=== PATIENT | female | born 1975 | race Caucasian/White ===

== ENCOUNTER 2017-02-05 16:19 | Emergency (ER) | payer MEDICAID ==
[2017-02-05 16:29] VITALS: RESP 16; TEMP 97.9
[2017-02-05] MEDS ORDERED: NS 1,000 ML IV ONE (16:49)
--- NOTE | 2017-02-05 16:51 | EDPHY ---
H & P Stated Complaint: LOWER ABD PAIN W/ NAUSEA Time Seen by Provider: 02/05/17 16:40 HPI/ROS: CHIEF COMPLAINT: Bilateral lower quadrant pain HISTORY OF PRESENT ILLNESS: Patient is a 41-year-old female with a history of appendectomy and cholecystectomy who comes to the emergency department complaining of bilateral lower abdominal pain and nausea. She has not vomited. No diarrhea. No fever. No vaginal bleeding or discharge. Her menses was 2 weeks ago. She denies risk of . She states the symptoms are similar to previous episodes of ovarian cysts. She states that she felt normal yesterday. No urinary symptoms. REVIEW OF SYSTEMS: Constitutional: denies: chills, fever, recent illness, recent injury EENTM: denies: blurred vision, double vision, nose congestion Respiratory: denies: cough, shortness of breath Cardiac: denies: chest pain, irregular heart rate, lightheadedness, palpitations Gastrointestinal/Abdominal: See HPI Genitourinary: denies: dysuria, frequency, hematuria, pain Musculoskeletal: denies: joint pain, muscle pain Skin: denies: lesions, rash, jaundice, bruising Neurological: denies: headache, numbness, paresthesia, tingling, dizziness, weakness Hematologic/Lymphatic: denies: blood clots, easy bleeding, easy bruising Immunologic/allergic: denies: HIV/AIDS, transplant EXAM: GENERAL: Well-appearing, well-nourished and in no acute distress. HEAD: Atraumatic, normocephalic. EYES: Pupils equal round and reactive to light, extraocular movements intact, sclera anicteric, conjunctiva are normal. ENT: TMs normal, nares patent, oropharynx clear without exudates. Moist mucous membranes. NECK: Normal range of motion, supple without lymphadenopathy or JVD. LUNGS: Breath sounds clear to auscultation bilaterally and equal. No wheezes rales or rhonchi. HEART: Regular rate and rhythm without murmurs, rubs or gallops. ABDOMEN: Soft, nontender, normoactive bowel sounds. No guarding, no rebound. No masses appreciated. BACK: No CVA tenderness, no spinal tenderness, step-offs or deformities EXTREMITIES: Normal range of motion, no pitting or edema. No clubbing or cyanosis. NEUROLOGICAL: Cranial nerves II through XII grossly intact. Normal speech, normal gait. 5/5 strength, normal movement in all extremities, normal sensation PSYCH: Normal mood, normal affect. SKIN: Warm, dry, normal turgor, no visible rashes or lesions. Source: Patient Exam Limitations: No limitations - Personal History LMP (Females 10-55): 8-14 Days Ago Current Tetanus Diphtheria and Acellular Pertussis (TDAP): Yes - Medical/Surgical History Hx Asthma: No Hx Chronic Respiratory Disease: No Hx Diabetes: No Hx Cardiac Disease: No Hx Renal Disease: No Hx Cirrhosis: No Hx Alcoholism: No Other PMH: KUMAR, APPY - Family History Significant Family History: No pertinent family hx - Social History Smoking Status: Never smoked Alcohol Use: Sober Drug Use: None Constitutional: Initial Vital Signs Temperature (C) 36.6 C 02/05/17 16:27 Heart Rate 84 02/05/17 16:27 Respiratory Rate 16 02/05/17 16:27 Blood Pressure 116/78 02/05/17 16:27 O2 Sat (%) 95 02/05/17 16:27 O2 Delivery Mode Room Air Allergies/Adverse Reactions: No Known Allergies Allergy (Unverified 02/05/17 16:26) Home Medications: Medication Instructions Recorded Cephalexin [Keflex] 500 mg PO TID #21 cap 02/05/17 Medical Decision Making - Diagnostics Imaging Results: Imaging Impressions Pelvic/Renal Ultrasound 02/05/17 16:49 Impression: 1. No acute findings in the pelvis. 2. Adnexal varices, which can be seen in asymptomatic patients as well as patients with pelvic congestion syndrome. Findings discussed with TONIO SMITH 02/05/2017 at 17:46. Imaging: Discussed imaging studies w/ sld inclusion teacher Radiologist ED Course/Re-evaluation: 6:45 p.m. we discussed the urinalysis results. I will start her on Keflex. She declines IV medication. We discussed continued treatment and indications for returning. We discussed expected course. Differential Diagnosis: Partial list of the Differential diagnosis considered include but were not limited to; urinary tract infection, ovarian cyst and although unlikely based on the history and physical exam, I also considered obstruction, ischemia, volvulus, diarrhea, constipation. I discussed these differential diagnoses and the plan with the patient as well as the usual and expected course. The patient understands that the diagnosis is provisional and that in medicine we are not always correct and that further workup is often warranted. Usual and customary warnings were given. All of the patient's questions were answered. The patient was instructed to return to the emergency department should the symptoms at all worsen or return, otherwise to followup with the physician as we discussed. - Data Points Laboratory Results: Laboratory Results 02/05/17 16:45 02/05/17 16:45 02/05/17 02/05/17 02/05/17 18:25 16:45 16:45 WBC RBC Hgb Hct MCV MCH MCHC RDW Plt Count MPV Neut % (Auto) Lymph % (Auto) [place] % (Auto) Eos % (Auto) Baso % (Auto) Nucleat RBC Rel Count Absolute Neuts (auto) Absolute Lymphs (auto) Absolute Monos (auto) Absolute Eos (auto) Absolute Basos (auto) Absolute Nucleated RBC Immature Gran % Immature Gran # Sodium 144 mEq/L mEq/L (134-144) Potassium 4.2 mEq/L mEq/L (3.5-5.2) Chloride 108 mEq/L mEq/L (97-110) Carbon Dioxide 24 mEq/l mEq/l (22-31) Anion Gap 12 mEq/L mEq/L (8-16) BUN 12 mg/dL mg/dL (7-23) Creatinine 0.7 mg/dL mg/dL (0.6-1.0) Estimated GFR > 60 Glucose 123 mg/dL H mg/dL (70-100) Calcium 9.9 mg/dL mg/dL (8.5-10.4) Total Bilirubin 0.3 mg/dL mg/dL (0.1-1.4) Conjugated Bilirubin 0.2 mg/dL mg/dL (0.0-0.5) Unconjugated Bilirubin 0.1 mg/dL mg/dL (0.0-1.1) AST 23 IU/L IU/L (14-46) ALT 43 IU/L IU/L (9-52) Alkaline Phosphatase 69 IU/L IU/L (38-126) Total Protein 7.2 g/dL g/dL (6.3-8.2) Albumin 4.1 g/dL g/dL (3.5-5.0) Lipase 80 IU/L IU/L (23-300) Beta HCG, Qual NEGATIVE Urine Color YELLOW Urine Appearance HAZY Urine pH 6.0 (5.0-7.5) Ur Specific [place] 1.021 (1.002-1.030) Urine Protein NEGATIVE (NEGATIVE) Urine Ketones NEGATIVE (NEGATIVE) Urine Blood NEGATIVE (NEGATIVE) Urine Nitrate POSITIVE H (NEGATIVE) Urine Bilirubin NEGATIVE (NEGATIVE) Urine Urobilinogen NEGATIVE EU EU (0.2-1.0) Ur Leukocyte Esterase TRACE H (NEGATIVE) Urine RBC 1-3 /hpf /hpf (0-3) Urine WBC 25-50 /hpf H /hpf (0-3) Ur Epithelial Cells 2+ /lpf H /lpf (NONE-1+) Calcium Oxalate Crystal PRESENT /hpf /hpf (NONE-1+) Urine Bacteria 3+ /hpf H /hpf (NONE SEEN) Urine Mucus TRACE /lpf /lpf (NONE-1+) Urine Glucose NEGATIVE (NEGATIVE) 02/05/17 16:45 WBC 6.55 10^3/uL 10^3/uL (3.80-9.50) RBC 4.30 10^6/uL 10^6/uL (4.18-5.33) Hgb 14.1 g/dL g/dL (12.6-16.3) Hct 41.2 % % (38.0-47.0) MCV 95.8 fL fL (81.5-99.8) MCH 32.8 pg pg (27.9-34.1) MCHC 34.2 g/dL g/dL (32.4-36.7) RDW 12.4 % % (11.5-15.2) Plt Count 262 10^3/uL 10^3/uL (150-400) MPV 10.3 fL fL (8.7-11.7) Neut % (Auto) 57.3 % % (39.3-74.2) Lymph % (Auto) 29.8 % % (15.0-45.0) Hendry % (Auto) 8.7 % % (4.5-13.0) Eos % (Auto) 2.9 % % (0.6-7.6) Baso % (Auto) 0.8 % % (0.3-1.7) Nucleat RBC Rel Count 0.0 % % (0.0-0.2) Absolute Neuts (auto) 3.76 10^3/uL 10^3/uL (1.70-6.50) Absolute Lymphs (auto) 1.95 10^3/uL 10^3/uL (1.00-3.00) Absolute Monos (auto) 0.57 10^3/uL 10^3/uL (0.30-0.80) Absolute Eos (auto) 0.19 10^3/uL 10^3/uL (0.03-0.40) Absolute Basos (auto) 0.05 10^3/uL 10^3/uL (0.02-0.10) Absolute Nucleated RBC 0.00 10^3/uL 10^3/uL (0-0.01) Immature Gran % 0.5 % % (0.0-1.1) Immature Gran # 0.03 10^3/uL 10^3/uL (0.00-0.10) Sodium Potassium Chloride Carbon Dioxide Anion Gap BUN Creatinine Estimated GFR Glucose Calcium Total Bilirubin Conjugated Bilirubin Unconjugated Bilirubin AST ALT Alkaline Phosphatase Total Protein Albumin Lipase Beta HCG, Qual Urine Color Urine Appearance Urine pH Ur Specific [place] Urine Protein Urine Ketones Urine Blood Urine Nitrate Urine Bilirubin Urine Urobilinogen Ur Leukocyte Esterase Urine RBC Urine WBC Ur Epithelial Cells Calcium Oxalate Crystal Urine Bacteria Urine Mucus Urine Glucose Medications Given: Discontinued Medications Cephalexin HCl (Keflex) 500 mg PO EDNOW ONE PRN Reason: Protocol Stop: 02/05/17 18:46 Last Admin: 02/05/17 19:04 Dose: 500 mg Sodium Chloride (Ns) 1,000 mls @ 0 mls/hr IV EDNOW ONE; Wide Open PRN Reason: Protocol Stop: 02/05/17 16:50 Last Admin: 02/05/17 16:59 Dose: 1,000 mls Departure - Departure Disposition: Home, Routine, Self-Care Clinical Impression: Urinary tract infection Qualifiers: Urinary tract infection type: acute cystitis Hematuria presence: without hematuria Qualified Code(s): N30.00 - Acute cystitis without hematuria Condition: Fair Instructions: Urinary Tract Infection in Women (ED) Referrals: NONE *PRIMARY CARE P,. [Primary Care Provider] - As per Instructions Angella Rodrigez MD [Medical Doctor] - As per Instructions Prescriptions: Cephalexin [Keflex] 500 mg PO TID #21 cap
[2017-02-05 16:56] LABS: % IMMATURE GRANULYOCYTES 0.5 % (0.0-1.1); ABSOLUTE IMMATURE GRANULOCYTES 0.03 10^3/uL (0.00-0.10); ADD DIFF? NO; ADD MORPH? NO; ADD SCAN? NO; ATYPICAL LYMPHOCYTE FLAG 10 (0-99); FRAGMENT RBC FLAG 0 (0-99); HEMATOCRIT 41.2 % (38.0-47.0); HEMOGLOBIN 14.1 g/dL (12.6-16.3); LEFT SHIFT FLG 0 (0-99); LIPEMIA HEMOLYSIS FLAG 90 (0-99); MEAN CELL HEMOGLOBIN 32.8 pg (27.9-34.1); MEAN CELL HEMOGLOBIN CONCENTR. 34.2 g/dL (32.4-36.7); MEAN CELL VOLUME 95.8 fL (81.5-99.8); MEAN PLATELET VOLUME 10.3 fL (8.7-11.7); PLATELET CLUMPS FLAG 10 (0-99); PLATELET COUNT 262 10^3/uL (150-400); RED CELL DISTRIBUTION WIDTH 12.4 % (11.5-15.2)
[2017-02-05 17:09] LABS: ALANINE AMINOTRANSFERASE 43 IU/L (9-52); ALBUMIN 4.1 g/dL (3.5-5.0); ALKALINE PHOSPHATASE 69 IU/L (38-126); ANION GAP 12 mEq/L (8-16); ASPARTATE AMINOTRANSFERASE 23 IU/L (14-46); BILIRUBIN,TOTAL 0.3 mg/dL (0.1-1.4); BILIRUBIN-CONJUGATED 0.2 mg/dL (0.0-0.5); BILIRUBIN-UNCONJUGATED 0.1 mg/dL (0.0-1.1); CALCIUM 9.9 mg/dL (8.5-10.4); CARBON DIOXIDE 24 mEq/l (22-31); CHLORIDE 108 mEq/L (97-110); CREATININE 0.7 mg/dL (0.6-1.0); GLOMERULAR FILTRATION RATE > 60; GLUCOSE 123 mg/dL (70-100); POTASSIUM 4.2 mEq/L (3.5-5.2); SODIUM 144 mEq/L (134-144); TOTAL PROTEIN 7.2 g/dL (6.3-8.2)
[2017-02-05 18:38] LABS: COLOR YELLOW; LEUKOCYTE ESTERASE,URINE TRACE (NEGATIVE); NITRITE,URINE POSITIVE (NEGATIVE)
[2017-02-05 18:45] LABS: BACTERIA 3+ /hpf (NONE SEEN); MUCUS TRACE /lpf (NONE-1+); WBC,URINE 25-50 /hpf (0-3)
[2017-02-05] MEDS ORDERED: CEPHALEXIN 500 MG CAP PO ONE (18:45)
[2017-02-05 19:08] VITALS: BP 137/96; PULSE 87; O2SAT 96
== END 2017-02-05 19:13 | disposition home or self-care (01) ==
DX: N30.00 Acute cystitis without hematuria (principal); E86.9 Volume depletion, unspecified; Z90.49 Acquired absence of other specified parts of digestive tract

== ENCOUNTER 2017-06-05 07:08 | Emergency (ER) | payer MEDICAID ==
--- NOTE | 2017-06-05 07:28 | EDPHY ---
H & P Time Seen by Provider: 06/05/17 07:15 HPI/ROS: CHIEF COMPLAINT: Cough and sore throat HISTORY OF PRESENT ILLNESS: Patient started having symptoms 10 days ago with cough which was initially helped by NyQuil but she could not sleep last night and she had worsening cough and sore throat. Subjective fevers yesterday. Presents with diffuse myalgias, headache, no ear or eye symptoms. She says symptoms are moderate to severe last night. Not associated with syncope or hemoptysis or leg swelling. Not short of breath. No recent foreign travel. REVIEW OF SYSTEMS: Eye: no change in vision ENT: HPI Cardiac: no chest pain or syncope Pulmonary: HPI Abdomen: no vomiting, diarrhea, abdominal pain Musculoskeletal: Diffuse myalgias. Skin: no rash Neuro: no headache Constitutional: Subjective fever yesterday : no urinary symptoms A comprehensive 10 point review of systems is otherwise negative aside from elements mentioned in the history of present illness. PAST MEDICAL HISTORY: Cholecystectomy, appendectomy Social history: Nonsmoker General Appearance: Alert and conversant, cooperative. Eyes: No scleral icterus. ENT, Mouth: Normal mucous membranes. Some pharyngeal erythema but no exudate, no trismus, uvula is midline, no peritonsillar swelling, no hoarse voice, no stridor or drooling. Respiratory: Normal respiratory effort, breath sounds equal, expiratory wheezing bilaterally, no focal lung sounds, no rhonchi or rales. Cardiovascular: Regular rate and rhythm. Gastrointestinal: Abdomen is soft and non tender. Neurological: Alert, face symmetric, normal motor and sensory in extremities. Skin: No urticaria Emergency Department course/MDM: Patient presents with acute upper respiratory infection which I think is unlikely to be bacterial in nature. Treated symptomatically with albuterol and cough medication to include Tessalon Perles and Tylenol with codeine. Primary care referral. She used to see [facility] in [place] but [place] lives [place] Smoking Status: Never smoked Constitutional: Initial Vital Signs Temperature (C) 36.8 C 06/05/17 07:12 Heart Rate 82 06/05/17 07:12 Respiratory Rate 18 06/05/17 07:12 Blood Pressure 126/80 H 06/05/17 07:12 O2 Sat (%) 96 06/05/17 07:12 O2 Delivery Mode Room Air Allergies/Adverse Reactions: No Known Allergies Allergy (Unverified 06/05/17 07:12) Home Medications: Medication Instructions Recorded Acetaminophen/Codeine 300/30Mg 1 each PO HS #11 tab 06/05/17 [Tylenol #3 (*)] Albuterol Hfa Anes Only [Proair 2 puffs IH QID #1 mdi 06/05/17 Hfa Icu (*)] Benzonatate [Tessalon Pearles (RX)] 100 mg PO Q8 PRN #15 cap 06/05/17 Tylenol Extra Strength 06/05/17 MDM/Departure - Depart Disposition: Home, Routine, Self-Care Clinical Impression: Acute bronchitis Qualifiers: Bronchitis organism: unspecified organism Qualified Code(s): J20.9 - Acute bronchitis, unspecified Condition: Good Instructions: Albuterol (By breathing) Prescriptions: Acetaminophen/Codeine 300/30Mg [Tylenol #3 (*)] 1 each PO HS #11 tab Albuterol Hfa Anes Only [Proair Hfa Icu (*)] 2 puffs IH QID #1 mdi Benzonatate [Tessalon Pearles (RX)] 100 mg PO Q8 PRN #15 cap PRN Reason: Cough, Moderate Referrals: Suha Gotti MD [[facility] [place]] - As per Instructions
[2017-06-05 07:31] VITALS: BP 125/87
== END 2017-06-05 07:33 | disposition home or self-care (01) ==
DX: J20.9 Acute bronchitis, unspecified (principal)

== ENCOUNTER 2017-10-22 04:18 | Emergency (ER) | payer MEDICAID ==
[2017-10-22 04:23] VITALS: BP 121/74
[2017-10-22] MEDS ORDERED: PHENAZOPYRIDINE HCL 200 MG TAB PO ONE (04:42)
[2017-10-22] MEDS ORDERED: ONDANSETRON DISINTEGRATING 4 MG TAB PO ONE (04:42)
--- NOTE | 2017-10-22 04:47 | EDPHY ---
H & P Stated Complaint: Poss UTI, back pain, nausea Time Seen by Provider: 10/22/17 04:24 HPI/ROS: HPI The patient presents with concern for urinary tract infection. She reports about 2 weeks of dysuria and urgency. She was seen at the clinic and was diagnosed with a urinary tract infection, however had difficulty picking up her antibiotic at the pharmacy. She has been drinking plenty of water and this helped with her symptoms, however over the last few days she has developed right -sided back pain, nausea, subjective fevers. The dysuria and urgency continue. She has had a history of prior urinary tract infections. She is concerned because her menses were supposed to arrive last week and have not. She is sexually active. She denies any vaginal discharge.. REVIEW OF SYSTEMS Constitutional: No fever, no chills. Eyes: No discharge. ENT: No sore throat. Cardiovascular: No chest pain, no palpitations. Respiratory: No cough, no shortness of breath. Gastrointestinal: No abdominal pain, no vomiting. Genitourinary: No hematuria. Musculoskeletal: Right-sided back pain. Skin: No rashes. Neurological: No headache. PMHx: Status post cholecystectomy, status post appendectomy PHYSICAL General Appearance: Alert, no distress Eyes: Pupils equal and round no pallor or injection ENT, Mouth: Mucous membranes moist Respiratory: There are no retractions, lungs are clear to auscultation Cardiovascular: Regular rate and rhythm Gastrointestinal: Abdomen is soft and non-tender, no masses, bowel sounds normal Back: Mild right-sided flank tenderness Neurological: A&O, moves all extremities Skin: Warm and dry, no rashes Musculoskeletal: Neck is supple non tender Extremities: symmetrical, full range of motion Psychiatric: Patient is oriented X 3, there is no agitation Source: Patient Exam Limitations: No limitations - Personal History LMP (Females 10-55): Over 28 Days Ago Current Tetanus Diphtheria and Acellular Pertussis (TDAP): No - Medical/Surgical History Hx Asthma: No Hx Chronic Respiratory Disease: No Hx Diabetes: No Hx Cardiac Disease: No Hx Renal Disease: No Hx Cirrhosis: No Hx Alcoholism: No Hx HIV/AIDS: No Hx Splenectomy or Spleen Trauma: No Other PMH: KUMAR, APPY - Social History Smoking Status: Never smoked Constitutional: Initial Vital Signs Temperature (C) 36.7 C 10/22/17 04:20 Heart Rate 82 10/22/17 04:20 Respiratory Rate 18 10/22/17 04:20 Blood Pressure 121/74 H 10/22/17 04:20 O2 Sat (%) 96 10/22/17 04:20 O2 Delivery Mode Room Air Allergies/Adverse Reactions: No Known Allergies Allergy (Unverified 10/22/17 04:20) Home Medications: Medication Instructions Recorded Acetaminophen/Codeine 300/30Mg 1 each PO HS #11 tab 06/05/17 [Tylenol #3 (*)] Albuterol Hfa Anes Only [Proair 2 puffs IH QID #1 mdi 06/05/17 Hfa Icu (*)] Benzonatate [Tessalon Pearles (RX)] 100 mg PO Q8 PRN #15 cap 06/05/17 Tylenol Extra Strength 06/05/17 levOFLOXACIN [Levofloxacin] 750 mg PO DAILY #7 tablet 10/22/17 Medical Decision Making Differential Diagnosis: 42-year-old healthy female presents with irritative voiding symptoms for several weeks, now with nausea, back pain, subjective fevers. On exam, vital signs are normal and she is well-appearing, she does have right-sided CVA tenderness. Differential diagnosis includes pyelonephritis, ureterolithiasis, cystitis. In the emergency department patient given peridium and Zofran her symptoms. Urine was checked and was consistent with urinary tract infection. Urine culture was sent. She is not . I will start her on a course of Levaquin for presumed pyelonephritis. She is happy with this plan. - Data Points Laboratory Results: 10/22/17 10/22/17 04:41 04:30 Urine Color YELLOW Urine Appearance MODERATELY TURBID Urine pH 5.0 (5.0-7.5) Ur Specific [place] 1.020 (1.002-1.030) Urine Protein NEGATIVE (NEGATIVE) Urine Ketones NEGATIVE (NEGATIVE) Urine Blood 1+ H (NEGATIVE) Urine Nitrate NEGATIVE (NEGATIVE) Urine Bilirubin NEGATIVE (NEGATIVE) Urine Urobilinogen NEGATIVE EU EU (0.2-1.0) Ur Leukocyte Esterase 3+ H (NEGATIVE) Urine RBC 15-25 /hpf H /hpf (0-3) Urine WBC 50-182 /hpf H /hpf (0-3) Ur Epithelial Cells 1+ /lpf /lpf (NONE-1+) Calcium Oxalate Crystal PRESENT /hpf /hpf (NONE-1+) Urine Bacteria 3+ /hpf H /hpf (NONE SEEN) Urine Mucus TRACE /lpf /lpf (NONE-1+) Urine Glucose NEGATIVE (NEGATIVE) Urine Test NEGATIVE Medications Given: Discontinued Medications Ondansetron HCl (Zofran Odt) 4 mg PO EDNOW ONE Stop: 10/22/17 04:43 Last Admin: 10/22/17 04:45 Dose: 4 mg Phenazopyridine HCl (Pyridium) 200 mg PO EDNOW ONE Stop: 10/22/17 04:43 Last Admin: 10/22/17 04:45 Dose: 200 mg Departure - Departure Disposition: Home, Routine, Self-Care Clinical Impression: Pyelonephritis Condition: Good Instructions: Kidney Infection (ED) Referrals: [facility] [Provider Group] - As per Instructions Prescriptions: levOFLOXACIN [Levofloxacin] 750 mg PO DAILY #7 tablet
== END 2017-10-22 05:16 | disposition home or self-care (01) ==
DX: N12 Tubulo-interstitial nephritis, not specified as acute or chronic (principal)

== ENCOUNTER 2018-02-02 22:37 | Emergency (ER) | payer MEDICAID ==
[2018-02-02 22:42] VITALS: BP 140/94
--- NOTE | 2018-02-02 23:13 | EDPHY ---
General Time Seen by Provider: 02/02/18 23:00 Narrative: CHIEF COMPLAINT: Hemorrhoids HISTORY OF PRESENT ILLNESS: Patient presents private vehicle with complaints of hemorrhoid and pain. She has had pain for several days. She has some itching with this as well. Over the past 24 hr she notes some blood when wiping. The pain occasionally goes into the abdomen rectum. She feels that she is getting constipated out of fear of the painful bowel movement. She has no bleeding from any other site. No dark tarry stools. No chest pain or shortness of breath. She was told in the past that she has hemorrhoids that she feels these are worsening. She has been using [id number] preparation H with no improvement. No other associated complaints or modifying factors REVIEW OF SYSTEMS: 10 systems were reviewed and negative with the exception of the elements mentioned in the history of present illness. PCP: [facility] SPECIALISTS: None PAST MEDICAL HISTORY: Hemorrhoid PAST SURGICAL HISTORY: No abdominal surgical history SOCIAL HISTORY: Nonsmoker. Lives independently. Works for [employer] FAMILY HISTORY: Noncontributory EXAMINATION: Vitals: Triage VS reviewed General Appearance: Alert, no distress. Well appearing. Ambulatory Head: normocephalic, atraumatic Eyes: Pupils equal and round, no conjunctival pallor or injection ENT, Mouth: Mucous membranes moist Cardiovascular: Regular rate. good signs of perfusion. Gastrointestinal: Abdomen is soft and nontender Rectal: Female RN (Ivanna) present for entire exam. There are 2 external, non thrombosed and nonbleeding hemorrhoids at the 12:00 p.m. And 6:00 a.m. Positions. No other abnormalities noted. Neurological: A&O, nonfocal, normal gait Skin: Warm and dry, no rash. No perianal abscess or perirectal abscess. No cellulitis. Extremities: Nontender, no pedal edema Psychiatric: Mood and affect normal DIFFERENTIAL DIAGNOSES: Including but not limited to external hemorrhoids, internal hemorrhoid, perianal abscess, perirectal abscess, pilonidal cyst, 48 days MDM: 11:00 p.m. No external, non thrombosed hemorrhoids. No active bleeding. No anal fissure. No evidence of perirectal or perianal abscess. No pilonidal cyst. No cellulitis. No gangrene or evidence of Devan's. I do feel that is reasonable treat her with Anucort and symptomatic medications. We also discussed stool softeners, MiraLax, magnesium citrate and Sitz baths. We discussed follow up with the general surgeon for definitive care. We discussed ED precautions for worsening symptoms, increasing bleeding or abdominal pain. She is comfortable this plan. She is well-appearing and discharged home stable condition. SUPERVISION: This patient was independently evaluated without direct involvement of or examination by the attending physician. CONSULTATION: None. General surgery referral - History Smoking Status: Never smoked - Objective Vital Signs: Initial Vital Signs Temperature (C) 98.2 F 02/02/18 22:40 Heart Rate 78 02/02/18 22:40 Respiratory Rate 20 02/02/18 22:40 Blood Pressure 140/94 H 02/02/18 22:40 O2 Sat (%) 97 02/02/18 22:40 O2 Delivery Mode Room Air Allergies/Adverse Reactions: No Known Allergies Allergy (Unverified 02/02/18 22:39) Home Medications: Medication Instructions Recorded Hydrocortisone Acetate [Anucort-Hc] 25 mg RC BID #9 supp.rect 02/02/18 Departure - Departure Disposition: Home, Routine, Self-Care Clinical Impression: External hemorrhoids Condition: Good Instructions: Hemorrhoids (ED), Sitz Bath (DC) Additional Instructions: 1. Suppositories as prescribed 2. Witch Millie pads frequently as needed 3. Sitz bath as discussed 4. Follow up with general surgery for definitive care 5. MiraLax [id number]. One packet once daily 6. Magnesium citrate 1/2 bottle. Wait 2-4 hours for bowel movement. Complete the remainder of the bottle if you are still feeling constipated 7. Return here for intractable pain, fever, difficulty with bowel movements Referrals: Sue Myers MD [Medical Doctor] - As per Instructions Physician,Emergency DeptMD [Medical Doctor] - As per Instructions Prescriptions: Hydrocortisone Acetate [Anucort-Hc] 25 mg RC BID #9 supp.rect
== END 2018-02-02 23:37 | disposition home or self-care (01) ==
DX: K64.8 Other hemorrhoids (principal)

== ENCOUNTER → 2018-03-17 | Outpatient (CLI) | payer MEDICAID | LOC: FIMAGING 10:11 | DX: R10.2 Pelvic and perineal pain (principal); N92.6 Irregular menstruation, unspecified ==

== ENCOUNTER → 2018-03-30 | Outpatient (CLI) | payer MEDICAID ==
[~2018-03-30] MED LIST: IOHEXOL 300 mgI/ML (OMNIPAQUE) 150 ML BTL IV ONE
== END ==
LOC: FIMAGING 11:15
PROVIDERS: ATTEND Physician Assistant Medical
DX: N20.0 Calculus of kidney (principal); M51.34 Other intervertebral disc degeneration, thoracic region
CPT/HCPCS: Q9967

== ENCOUNTER 2018-04-15 12:28 | Emergency (ER) | payer MEDICAID ==
--- NOTE | 2018-04-15 12:49 | EDPHY ---
H & P Stated Complaint: Vaginal Pain and Discharge, Worried about STI Time Seen by Provider: 04/15/18 12:39 HPI/ROS: CHIEF COMPLAINT: Left lower quadrant abdominal pain x3 days HISTORY OF PRESENT ILLNESS: 42-year-old female remote history of appendectomy, cholecystectomy, via private vehicle complaining of 3 days of left lower quadrant abdominal pain. She is specifically concerned about chlamydia noting that she broke up with boyfriend 2 weeks ago a.m. Was recently informed by friend that he may have chlamydia. Patient does note dyspareunia when she was with him at least 2 weeks ago. The patient denies any known history of STD. She is complaining of new onset mucopurulent vaginal discharge. She is also complaining of dysuria. PRIMARY CARE PROVIDER: REVIEW OF SYSTEMS: 10 systems reviewed and negative with the exception of the elements mentioned in the history of present illness PAST MEDICAL & SURGICAL HISTORY: No pertinent medical or surgical history SOCIAL HISTORY: Single. No alcohol or drug use. PHYSICAL EXAM (Prior to examination, patient consented to physical exam, hands were washed and my usual and customary physical exam procedures followed) 1) GENERAL: Well-developed, well-nourished, alert and oriented. Appears to be in no acute distress. 2) HEAD: Normocephalic, atraumatic 3) HEENT: Pupils equal, round, reactive to light bilaterally. Sclera anicteric. Nasopharynx, oropharynx, clear, no lesions. MoistDry mucous membranes. Ears bilaterally with normal tympanic membranes. 4) NECK: Full range of motion, no meningeal signs. 5) LUNGS: Clear auscultation bilaterally, no wheezes, no rhonchi, no retractions. 6) HEART: Regular rate and rhythm, no murmur, no heave, no gallop. 7) ABDOMEN: No guarding, tender to palpation left lower quadrant. Negative peritoneal sign, 8) MUSCULOSKELETAL: Moving all extremities, no focal areas of tenderness, no obvious trauma. No peripheral edema or discoloration. 9) BACK: No CVA tenderness, no midline vertebral tenderness, no fluctuance, no step-off, no obvious trauma, no visual or palpable abnormality. 10) SKIN: No rash, no petechiae. 11) Psychiatric: Patient is oriented X 3, there is no agitation. 12) PELVIC (with female tech Kati at bedside): Normal female external genitalia, mucopurulent vaginal discharge noted, positive cervical motion tenderness, no adnexal masses], DIFFERENTIAL DIAGNOSIS: My differential diagnosis includes, but is not limited to, acute appendicitis, acute cholecystitis, bowel obstruction, acute pancreatitis, ovarian torsion, ectopic , gastritis and urinary tract infection. The patient understands that this diagnosis is provisional and can never be 100% accurate. This is a partial list of diagnoses considered. These considerations are based on history, physical exam, past history and reassessment. - Personal History LMP (Females 10-55): 22-28 Days Ago Current Tetanus Diphtheria and Acellular Pertussis (TDAP): Yes - Medical/Surgical History Hx Asthma: No Hx Chronic Respiratory Disease: No Hx Diabetes: No Hx Cardiac Disease: No Hx Renal Disease: No Hx Cirrhosis: No Hx Alcoholism: No Hx HIV/AIDS: No Hx Splenectomy or Spleen Trauma: No Other PMH: KUMAR, APPY - Social History Smoking Status: Never smoked Constitutional: Initial Vital Signs Temperature (C) 36.6 C 04/15/18 12:31 Heart Rate 93 04/15/18 12:31 Respiratory Rate 18 04/15/18 12:31 Blood Pressure 110/81 H 04/15/18 12:31 O2 Sat (%) 97 04/15/18 12:31 O2 Delivery Mode Room Air Allergies/Adverse Reactions: No Known Allergies Allergy (Verified 04/15/18 12:30) Home Medications: Medication Instructions Recorded Doxycycline Hyclate 100 mg PO BID 14 Days capsule 04/15/18 Medical Decision Making - Diagnostics Imaging Results: Imaging Impressions Pelvic/Renal Ultrasound 04/15/18 12:45 Impression: Normal pelvic ultrasound. Findings discussed with Beto Velasco 04/15/2018 at 14:57. ED Course/Re-evaluation: Care of patient under supervision of secondary supervising physician Dr White with whom I discussed case. The patient was re-evaluated with serial exams. She is noted to have cervical motion tenderness, mucopurulent vaginal discharge , subjective complaints of dyspareunia and a recent former sexual partner who may have chlamydia. High clinical suspicion for pelvic inflammatory disease. No evidence of tubo-ovarian abscess on ultrasound, no evidence of ovarian torsion on ultrasound. Plan will be treatment with ceftriaxone 250 mg IM and doxycycline 100 mg twice daily times 14 days. I reviewed patient's old medical records, she had a CT of abdomen pelvis approximately 2 weeks ago. The patient and I discussed possibility of diverticulitis which I think is less than likely this patient given her normal white blood cell count, absence of pain left lower quadrant and a CT scan of the abdomen pelvis dated approximately 2 weeks ago with no mention of diverticula. At this time will hold on CT imaging the abdomen pelvis in order to minimize ionizing radiation exposure. However, explained the patient this is not been fully ruled out definitely if she develops progressive abdominal pain, fever, chills, she is to return to the ER immediately for re-evaluation. Patient feels comfortable being discharged. All questions and concerns addressed by myself. Patient given my usual and customary discharge precautions and instructions regarding their clinical impression. - Data Points Laboratory Results: Laboratory Results 04/15/18 12:57 04/15/18 12:57 04/15/18 04/15/18 04/15/18 12:57 12:57 12:57 WBC RBC Hgb Hct MCV MCH MCHC RDW Plt Count MPV Neut % (Auto) Lymph % (Auto) [place] % (Auto) Eos % (Auto) Baso % (Auto) Nucleat RBC Rel Count Absolute Neuts (auto) Absolute Lymphs (auto) Absolute Monos (auto) Absolute Eos (auto) Absolute Basos (auto) Absolute Nucleated RBC Immature Gran % Immature Gran # Sodium Potassium Chloride Carbon Dioxide Anion Gap BUN Creatinine Estimated GFR Glucose Calcium Beta HCG, Qual NEGATIVE Urine Color YELLOW Urine Appearance HAZY Urine pH 5.0 (5.0-7.5) Ur Specific [place] 1.026 (1.002-1.030) Urine Protein NEGATIVE (NEGATIVE) Urine Ketones NEGATIVE (NEGATIVE) Urine Blood NEGATIVE (NEGATIVE) Urine Nitrate POSITIVE H (NEGATIVE) Urine Bilirubin NEGATIVE (NEGATIVE) Urine Urobilinogen NEGATIVE EU EU (0.2-1.0) Ur Leukocyte Esterase 2+ H (NEGATIVE) Urine RBC NONE SEEN /hpf /hpf (0-3) Urine WBC 25-50 /hpf H /hpf (0-3) Ur Epithelial Cells TRACE /lpf /lpf (NONE-1+) Urine Bacteria TRACE /hpf H /hpf (NONE SEEN) Urine Mucus TRACE /lpf /lpf (NONE-1+) Urine Glucose NEGATIVE (NEGATIVE) C.trachomatis RNA (TMA) Pending N.gonorrhoeae RNA (TMA) Pending 04/15/18 04/15/18 12:57 12:57 WBC 7.63 10^3/uL 10^3/uL (3.80-9.50) RBC 4.74 10^6/uL 10^6/uL (4.18-5.33) Hgb 14.7 g/dL g/dL (12.6-16.3) Hct 44.9 % % (38.0-47.0) MCV 94.7 fL fL (81.5-99.8) MCH 31.0 pg pg (27.9-34.1) MCHC 32.7 g/dL g/dL (32.4-36.7) RDW 12.3 % % (11.5-15.2) Plt Count 275 10^3/uL 10^3/uL (150-400) MPV 10.2 fL fL (8.7-11.7) Neut % (Auto) 68.0 % % (39.3-74.2) Lymph % (Auto) 23.5 % % (15.0-45.0) [place] % (Auto) 6.9 % % (4.5-13.0) Eos % (Auto) 1.0 % % (0.6-7.6) Baso % (Auto) 0.5 % % (0.3-1.7) Nucleat RBC Rel Count 0.0 % % (0.0-0.2) Absolute Neuts (auto) 5.18 10^3/uL 10^3/uL (1.70-6.50) Absolute Lymphs (auto) 1.79 10^3/uL 10^3/uL (1.00-3.00) Absolute Monos (auto) 0.53 10^3/uL 10^3/uL (0.30-0.80) Absolute Eos (auto) 0.08 10^3/uL 10^3/uL (0.03-0.40) Absolute Basos (auto) 0.04 10^3/uL 10^3/uL (0.02-0.10) Absolute Nucleated RBC 0.00 10^3/uL 10^3/uL (0-0.01) Immature Gran % 0.1 % % (0.0-1.1) Immature Gran # 0.01 10^3/uL 10^3/uL (0.00-0.10) Sodium 141 mEq/L mEq/L (135-145) Potassium 3.9 mEq/L mEq/L (3.5-5.2) Chloride 107 mEq/L mEq/L (97-110) Carbon Dioxide 24 mEq/l mEq/l (22-31) Anion Gap 10 mEq/L mEq/L (6-14) BUN 14 mg/dL mg/dL (7-23) Creatinine 0.7 mg/dL mg/dL (0.6-1.0) Estimated GFR > 60 Glucose 103 mg/dL H mg/dL (70-100) Calcium 9.8 mg/dL mg/dL (8.5-10.4) Beta HCG, Qual Urine Color Urine Appearance Urine pH Ur Specific [place] Urine Protein Urine Ketones Urine Blood Urine Nitrate Urine Bilirubin Urine Urobilinogen Ur Leukocyte Esterase Urine RBC Urine WBC Ur Epithelial Cells Urine Bacteria Urine Mucus Urine Glucose C.trachomatis RNA (TMA) N.gonorrhoeae RNA (TMA) Medications Given: Discontinued Medications Doxycycline Hyclate (Doxycycline Hyclate) 100 mg PO EDNOW ONE PRN Reason: Protocol Stop: 04/15/18 15:23 Last Admin: 04/15/18 15:32 Dose: 100 mg Departure - Departure Disposition: Home, Routine, Self-Care Clinical Impression: Pelvic inflammatory disease Condition: Good Instructions: Pelvic Inflammatory Disease (ED) Additional Instructions: Seek immediate medical attention if you develop new or worsening symptoms, if you develop fevers, chills, inability to tolerate oral intake or any other symptoms that concerns you. Referrals: [facility],. [Clinic] - 2-3 days, call for appt. Stand Alone Forms: Work Excuse Prescriptions: Doxycycline Hyclate 100 mg PO BID 14 Days capsule
[2018-04-15 13:18] LABS: PLATELET COUNT 275 10^3/uL (150-400)
[2018-04-15] MEDS ORDERED: DOXYCYCLINE HYCLATE 100 MG CAP/TAB PO ONE (15:22)
[2018-04-15 16:22] VITALS: BP 112/60
[2018-04-18 11:59] LABS: GC AMPLIFICATION GENPROBE NEGATIVE (NEGATIVE)
== END 2018-04-15 16:22 | disposition home or self-care (01) ==
DX: N73.9 Female pelvic inflammatory disease, unspecified (principal)
CPT/HCPCS: J0696